=== PATIENT | male | born 1970 | race African-American/Black ===

== ENCOUNTER 2018-03-01 13:05 | Day surgery (SDC) | payer MEDICARE, OTHER ==
[2018-03-01 14:12] LABS: ADD MAN DIFF? NO
[2018-03-01 14:14] LABS: WHITE BLOOD COUNT 3.9 10^3/ul (4.8-10.8)
[2018-03-01 14:14] LABS: BASOPHILS % 0.8 % (0.0-2.0); EOSINOPHILS # 0.1 10^3/ul (0.0-0.5); EOSINOPHILS % 3.6 % (0.0-7.0); HEMOGLOBIN 9.8 g/dl (14.0-18.0); LYMPHOCYTES # 0.8 10^3/ul (0.8-2.9); LYMPHOCYTES % 19.8 % (15.0-51.0); MEAN CORPUSCULAR HEMOGLOBIN 30.3 pg (29.0-33.0); MEAN CORPUSCULAR HGB CONC 32.7 g/dl (32.0-37.0); MEAN CORPUSCULAR VOLUME 92.9 fl (82.0-101.0); MEAN PLATELET VOLUME 10.3 fl (7.4-10.4); MONOCYTE # 0.4 10^3/ul (0.3-0.9); MONOCYTES % 9.3 % (0.0-11.0); NEUTROPHIL # 2.6 10^3/ul (1.6-7.5); NEUTROPHILS % 66.2 % (39.0-77.0); PLATELET COUNT 185 10^3/UL (140-415); RED BLOOD COUNT 3.23 10^6/ul (4.70-6.10); RED CELL DISTRIBUTION WIDTH 14.3 % (11.5-14.5)
[2018-03-01 14:15] LABS: HOLD TRANSMISSIONS 1
[2018-03-01 14:40] LABS: ANION GAP 23 (8-16); CARBON DIOXIDE 28 mmol/L (21-31); CHLORIDE 99 mmol/L (97-110); GLUCOSE 96 mg/dl (70-220)
[2018-03-01] MEDS ORDERED: IODIXANOL LOCM 100 ML BTL ×4 (14:43→15:28)
[2018-03-01] MEDS ORDERED: LIDOCAINE 1% (MDV) 20 ML INJ ×2 (14:43)
[2018-03-01] MEDS ORDERED: HEPARIN 1000 UNITS/NS (A-LINE) 1,000 ML ×2 (14:43)
[2018-03-01] MEDS ORDERED: MIDAZOLAM 1 MG/ML 2 ML INJ ×2 (14:44)
[2018-03-01] MEDS ORDERED: FENTAnyl 50 MCG/ML VIAL ×2 (14:44)
[2018-03-01 14:47] LABS: INR 0.96; PROTIME 12.9 Sec (11.9-14.9)
[2018-03-01 14:48] LABS: PARTIAL THROMBOPLASTIN TIME 32.5 Sec (25.0-35.0)
[2018-03-01 15:50] LABS: BLOOD UREA NITROGEN 75 mg/dl (7-20); POTASSIUM 4.5 mmol/L (3.5-5.1); SODIUM 145 mmol/L (135-144)
[2018-03-01 15:51] LABS: CREATININE 16.84 mg/dl (0.61-1.24)
[2018-03-01 15:52] LABS: CALCIUM 10.1 mg/dl (8.4-10.2)
[2018-03-01] MEDS ORDERED: SOD CHLORIDE 0.9% 500 ML ×2 (16:04)
[2018-03-01] MEDS ORDERED: hydrALAzine 20 MG INJ ×4 (16:20→16:36)
== END 2018-03-01 17:05 | disposition home or self-care (01) ==
LOC: SDS 13:05
DX: T82.898A Other specified complication of vascular prosthetic devices, implants and grafts, initial encounter (principal); Y84.1 Kidney dialysis as the cause of abnormal reaction of the patient, or of later complication, without mention of misadventure at the time of the procedure; I12.0 Hypertensive chronic kidney disease with stage 5 chronic kidney disease or end stage renal disease; N18.6 End stage renal disease
CPT/HCPCS: 36907; 71045; 76937; 80048; 85025; 85610; 85730; 93005